=== PATIENT | female | born 1960 | race African-American/Black ===

== ENCOUNTER 2018-10-26 05:22 | Day surgery (SDC) | payer MEDICAID ==
[~2018-10-26] VITALS: Ht 165.1 cm; Wt 75.7 kg
[2018-10-26] MEDS ORDERED: LACTATED RINGERS 1,000 ML IV SCH (06:40)
[2018-10-26] MEDS ORDERED: CARD12 PO (06:49)
[2018-10-26] MEDS ORDERED: NAPR500T7 PO (06:49)
[2018-10-26] MEDS ORDERED: LIDOCAINE HCL 1% 20ML VIAL (Pyxis) INJ ONE (06:58)
[2018-10-26] MEDS ORDERED: BUPIVACAINE HCL/PF 0.5% (5MG/ML) 10ML ONE ×2 (06:58→06:59)
[2018-10-26] MEDS ORDERED: BACITRACIN 50,000 UNITS/VIAL ONE (07:05)
[2018-10-26] MEDS ORDERED: SKIN ADHESIVE 0.7 GM EA TOP ONE (07:32)
[2018-10-26] MEDS ORDERED: FENTANYL CITRATE/PF 50MCG/ML 2ML VIAL ONE (08:11)
[2018-10-26] MEDS ORDERED: GLYCOPYRROLATE 0.2 MG/ML 2ML VIAL ONE (08:12)
[2018-10-26] MEDS ORDERED: SUCCINYLCHOLINE CHLORIDE 200MG/10ML IV ONE (08:12)
[2018-10-26] MEDS ORDERED: ONDANSETRON HCL 4MG/2ML INJ ONE (08:12)
[2018-10-26] MEDS ORDERED: METOCLOPRAMIDE HCL 10MG/2ML VIAL ONE (08:12)
[2018-10-26] MEDS ORDERED: MIDAZOLAM HCL 2 MG/2 ML VIAL ONE (08:12)
[2018-10-26] MEDS ORDERED: PROPOFOL 200MG/20ML VIAL IV ONE (08:12)
[2018-10-26] MEDS ORDERED: LIDOCAINE HCL/PF 1% 10 MG/ML 5ML VIAL ONE (08:12)
[2018-10-26] MEDS ORDERED: SODIUM CHLORIDE 0.9% 1,000 ML IV ONE (08:19)
[2018-10-26] MEDS ORDERED: MEPERIDINE HCL/PF 25MG/ML CPJ IV PRN (08:30)
[2018-10-26] MEDS ORDERED: ONDANSETRON HCL 4MG/2ML INJ IV PRN (08:30)
[2018-10-26] MEDS ORDERED: MORPHINE SULFATE 4 MG/ML CPJ (NOT FOR IM USE) IV PRN (08:30)
[2018-10-26] MEDS ORDERED: HYDROMORPHONE HCL/PF 2MG/ML CPJ IV PRN (08:30)
[2018-10-26] MEDS ORDERED: EPHEDRINE SULFATE 50MG/ML VIAL ONE (08:36)
== END 2018-10-26 10:15 | disposition home or self-care (01) ==
LOC: OR 05:22
PROVIDERS: ATTEND Specialist
DX: L72.0 Epidermal cyst (principal); I10 Essential (primary) hypertension; M17.9 Osteoarthritis of knee, unspecified; F17.210 Nicotine dependence, cigarettes, uncomplicated; Z98.890 Other specified postprocedural states; Z88.8 Allergy status to other drugs, medicaments and biological substances; Z88.0 Allergy status to penicillin; Z79.899 Other long term (current) drug therapy
CPT/HCPCS: 11402; 12031; 88304; J0330; J2250; J2405; J2765; J3010; J3490; J2704